=== PATIENT | female | born 1970 | race Caucasian/White ===

== ENCOUNTER → 2017-05-13 | Outpatient (CLI) | payer MEDICARE, OTHER ==
--- NOTE | 2017-05-13 12:15 | WOMENS IMAGING REPORT ---
EXAM DESCRIPTION: BONE DENSITY HIP/SPINE COMPLETED DATE/TIME: 05/13/2017 11:46 am REASON FOR STUDY: SCREENING OSTEOPROSIS; Z13.820 Z12.31 ENCNTR SCREEN MAMMOGRAM FOR MALIGNANT NEOPL ASM OF MAXIMILIANO M81.0 AGE-RELATED OSTEOPOROSIS W/O CURRENT PATHOLOGICAL FRAC COMPARISON: None. TECHNIQUE: Dual-Energy X-ray Absorptiometry (DEXA) of the AP Spine and Hip. LIMITATIONS: None. FINDINGS: LUMBAR SPINE: The bone mineral density (BMD) measured from L1-L4 in the AP projection correlates with a T-score of +0.1, which is normal as defined by the World Health Organization. HIP: The bone mineral density (BMD) measured in the left femoral neck at the hip correlates with a T-score of -0.1, which is normal as defined by the World Health Organization. IMPRESSION: 1. LUMBAR SPINE: Normal 2. HIP: Normal COMMENT: The World Health Organization defines low BMD as follows: T-score: Normal: Greater than -1.0 Osteopenia: Between -1.0 and -2.5 Osteoporosis: Less than -2.5 without fractures Established osteoporosis: Less than -2.5 with fractures In general, you may wish to consider: Diagnosis Treatment Follow-up DEXA Normal BMD Prevention 2-3 years Osteopenia Prevention/Therapy 1-2 years Osteoporosis Therapy Yearly TECHNICAL DOCUMENTATION: JOB ID: [id number]- All Rights Reserved
== END ==
LOC: WI 09:06
DX: Z12.31 Encounter for screening mammogram for malignant neoplasm of breast (principal); M81.0 Age-related osteoporosis without current pathological fracture
CPT/HCPCS: 77067; 77080

== ENCOUNTER → 2020-04-26 | Outpatient (CLI) | payer MEDICARE | LOC: NEURO 13:00 | PROVIDERS: ATTEND Pediatrics | DX: G40.909 Epilepsy, unspecified, not intractable, without status epilepticus (principal) | CPT/HCPCS: 95819 ==